=== PATIENT | male | born 1990 | race Caucasian/White ===

== ENCOUNTER 2019-10-02 12:26 | Inpatient (IN) | payer MEDICARE, OTHER, MEDICAID ==
[~2019-10-02] VITALS: Ht 154.9 cm; Wt 45.6 kg
[2019-10-02] VITALS (31 sets, daily range): BP systolic 128–172; BP diastolic 39–121
[2019-10-02] MEDS ORDERED: DEXTROSE (50%) 50ML SYRG IV ONE ×2 (13:10→13:30)
[2019-10-02 13:31] LABS: Basophils # (auto) 0.1 uL; Eosinophils # (auto) 0 uL; Eosinophils % (auto) 0.1 % (0.0-7.0); Hematocrit 38.9 % (41.0-53.0); Lymphocytes # (auto) 1.9 uL
[2019-10-02 13:35] LABS: Basophils % (auto) 0.5 % (0.0-2.0); Lymphocytes % (auto) 18.3 % (10.0-50.0); Mean Corpuscular Hemoglobin 32.9 pg (28.0-32.0); Mean Corpuscular Hgb Conc. 30.9 g/dL (32.0-36.0); Mean Corpuscular Volume 106.7 fL (80.0-100.0); Monocytes # (auto) 0.7 uL; Monocytes % (auto) 6.2 % (0.0-12.0); Neutrophils # (auto) 7.9 uL; Neutrophils % (auto) 74.9 % (37.0-80.0); Nucleated Red Blood Cells % 0.5 %; Platelet Count (auto) 245 10^3/uL (140-450); Red Blood Cells 3.64 10^6/uL (4.5-5.90); White Blood Cell 10.6 10^3/uL (4.4-10.8)
[2019-10-02 13:40] LABS: Red Cell Distribution Width 22.8 % (11.8-14.3)
[2019-10-02 13:50] LABS: Albumin 3.5 g/dL (3.4-5.0); Calcium 8.2 mg/dL (8.5-10.1); Magnesium 2.8 mg/dL (1.6-2.6)
[2019-10-02 13:52] LABS: Lactic Acid w/Reflex 10.6 mmol/L (0.4-2.0)
[2019-10-02 13:56] LABS: Bilirubin, Total 1.1 mg/dL (0.2-1.0); Total Protein 8.9 g/dL (6.4-8.2)
[2019-10-02 14:04] LABS: Potassium 7.5 mmol/L (3.5-5.1)
[2019-10-02] MEDS ORDERED: SODIUM BICARBONATE 8.4% INJ 50ML SYRINGE ONE (14:12)
[2019-10-02] MEDS ORDERED: CALCIUM GLUC 4.65meq/50ml D5AE 50 ML IV ONE ×2 (14:14→14:15)
[2019-10-02] MEDS ORDERED: SUCCINYLCHOLINE CHLORIDE 20 MG/ML 10ML VIAL IV ONE ×2 (14:15)
[2019-10-02] MEDS ORDERED: ETOMIDATE (2MG/ML) 20ML VIAL IV ONE ×2 (14:15)
[2019-10-02] MEDS ORDERED: SODIUM BICARBONATE 8.4 % INJ 50ML VIAL IV ONE ×2 (14:15)
[2019-10-02] MEDS ORDERED: MIDAZOLAM DRIP 50 mg/50mL 50 ML IV ONE (14:17)
[2019-10-02] MEDS ORDERED: ALBUTEROL SULF 2.5 MG/0.5ML(0.5%) NEB SOLN HHN ONE (14:30)
[2019-10-02] MEDS: MIDAZOLAM DRIP 50 mg/50mL 50 ML IV SCH (14:33)
[2019-10-02] MEDS ORDERED: fentaNYL Drip 2500mCg/250mlNS 250 ML IV SCH (15:00)
[2019-10-02] MEDS ORDERED: NITROGLYCERIN 0.4 MG SL TAB SL PRN (15:00)
[2019-10-02] MEDS ORDERED: DEXTROSE (50%) 50ML SYRG IV PRN ×2 (15:00→15:15)
[2019-10-02] MEDS ORDERED: MORPHINE SULF INJ 2 MG/ML SYRINGE 1ML IV PRN (15:00)
[2019-10-02] MEDS ORDERED: Glucerna 1.2 Cal 1Liter BOTTLE GT SCH (15:00)
[2019-10-02] MEDS ORDERED: SODIUM CHL 0.9% 1000 ML BAG XX ONE (15:15)
[2019-10-02] MEDS ORDERED: VANCOMYCIN PER PHARMACY 0 MG IV SCH (15:30)
[2019-10-02] MEDS ORDERED: cefTRIAXone 1GM/50ML D5W 50 ML IV ONE (15:30)
[2019-10-02 16:18] LABS: BUN/Creatinine Ratio 12.4; Calcium 7.5 mg/dL (8.5-10.1)
--- NOTE | 2019-10-02 16:20 | NUR ---
Admit to ICU from ER on vent Report received from Jia JONAS. REBEKAH MAYER admitted to ICU via gurney on colorist dyer, intubated and being bagged by Respiratory Therapist. Patient transferred to bed, connected to mechanical ventilator by therapist, SABRINA at bedside. ER nurse stated they are unable to take patient to head CT at this time. Patient connected to ICU monitoring, weighed by bedscale, oriented to Luna david RN, unit, ventilator and sedation. Vital signs stable at this time. Bed locked in lowest position, alarms in place. Will continue to monitor.
--- NOTE | 2019-10-02 16:20 | NUR ---
Respiratory note: PATIENT TRANSFERRED TO ICU BED 1 WITH SUMI BULLOCK. HE WAS TAKEN OFF VENT AND BAGGED VIA AMBU-BAG WITH 100% FIO2 FOR DURATION OF THE TRIP. HE WAS PLACED BACK ON V14 ESPRIT VENT WITH ALL PREVIOUSLY ORDERED SETTINGS ONCE IN ICU. TRANSPORT COMPLETED WITHOUT INCIDENT.
[2019-10-02 16:21] LABS: CRP High Sensitivity 6.66 mg/dL (< 0.3)
--- NOTE | 2019-10-02 16:25 | NUR ---
CRITICAL LAB VALUES Potassium 7.4, BUN 87. MD to be notified. Patient going to received emergent dialysis per .
[2019-10-02 16:26] LABS: Potassium 7.4 mmol/L (3.5-5.1)
--- NOTE | 2019-10-02 16:35 | NUR ---
JUSTUS CATH Site cultured and sent to lab. Patient arrived from ED without dressing on right groin Justus catheter, site cleansed and dressing applied.
--- NOTE | 2019-10-02 16:39 | NUR ---
DIALYSIS plastic block boiler reliner at bedside, treatment started.
[2019-10-02 16:45] LABS: Basophils # (auto) 0 uL; Eosinophils # (auto) 0 uL; Hematocrit 35.4 % (41.0-53.0); Hemoglobin 11.2 g/dL (13.5-17.5); Mean Corpuscular Hemoglobin 32.8 pg (28.0-32.0); Monocytes # (auto) 0.8 uL; Neutrophils # (auto) 5.9 uL; Platelet Count (auto) 181 10^3/uL (140-450)
[2019-10-02] MEDS ORDERED: CARVEDILOL 3.125 MG TAB NG ONE (16:45)
[2019-10-02 16:47] LABS: Basophils % (auto) 0.3 % (0.0-2.0); Lymphocytes # (auto) 1.6 uL; Lymphocytes % (auto) 19.6 % (10.0-50.0); Mean Corpuscular Hgb Conc. 31.6 g/dL (32.0-36.0); Mean Corpuscular Volume 103.8 fL (80.0-100.0); Monocytes % (auto) 9.4 % (0.0-12.0); Neutrophils % (auto) 70.7 % (37.0-80.0); Nucleated Red Blood Cells % 0.2 %; Red Blood Cells 3.41 10^6/uL (4.5-5.90); Red Cell Distribution Width 22.1 % (11.8-14.3); White Blood Cell 8.3 10^3/uL (4.4-10.8)
[2019-10-02] MEDS ORDERED: ACCU-CHEK COMFORT CURVE STRIP VI SCH (17:00)
[2019-10-02] MEDS ORDERED: VANCOMYCIN 750mg/250ml 250 ML IV ONE (17:00)
[2019-10-02] MEDS ORDERED: InsuLIN REG 1unit/0.01ml Soln (100units/ml) SC SCH (17:00)
[2019-10-02] MEDS: ACCU-CHEK COMFORT CURVE STRIP VI SCH ×2 (17:00→21:56)
[2019-10-02] MEDS: InsuLIN REG 1unit/0.01ml Soln (100units/ml) SC SCH ×2 (17:00→21:56)
--- NOTE | 2019-10-02 17:02 | NUR ---
MD VISIT: NEPHROLOGY at bedside. MD notified of most recent lab results. MD aware. New orders obtained.
[2019-10-02] MEDS ORDERED: PROPOFOL 100 ML IV SCH (17:10)
--- NOTE | 2019-10-02 17:10 | NUR ---
MD VISIT: PULMONOLOGY at bedside. MD aware of labs, ventilator settings, and history. MD reviewing medical records. New orders obtained.
--- NOTE | 2019-10-02 17:30 | NUR ---
FAMILY Patient mother and other family members at bedside.
--- NOTE | 2019-10-02 18:37 | NUR ---
MED HELD One time dose Coreg held per . MD wants to wait until after dialysis to assess stability.
[2019-10-02 19:12] LABS: INR 2.13 (0.9-1.15); Partial Thromboplastin Time 34.5 sec (23.64-32.05)
--- NOTE | 2019-10-02 19:20 | NUR ---
REPORT Report given to Miguel Angel JONAS, care endorsed.
[2019-10-02] MEDS: LABETALOL HCL 5 MG/ML 4ML SYRINGE IV PRN (20:03)
--- NOTE | 2019-10-02 21:30 | NUR ---
PATIENT IS BACK FROM CT WITHOUT ANY INCIDENT.
--- NOTE | 2019-10-02 21:45 | NUR ---
Nasogastric tube insertion Patient educated on need for NG tube. Family's questions addressed. RT. NGT inserted per MD order for tube feeding. Placement verified by aspiration of stomach contents, and auscultation.
[2019-10-02] MEDS: FAMOTIDINE (10MG/ML) 2ML VL IV SCH (21:58)
[2019-10-02] MEDS: CARVEDILOL 3.125 MG TAB NG SCH (21:59)
[2019-10-03] VITALS (81 sets, daily range): BP systolic 115–181; BP diastolic 69–127
--- NOTE | 2019-10-03 03:00 | NUR ---
Patient bathe/linen change Patient given complete bath with chlorhexidine wipes. Skin integrity assessed for any changes. Linens changed. Patient repositioned for comfort.
--- NOTE | 2019-10-03 03:38 | NUR ---
CT HEAD PATIENT IS TAKEN TO CT BY LUCERO JONAS, YEVGENIY AMBROSIO AND TRANSPORT PERSON.PATIENT IS CONNECTED TO PLASTICS DESIGN ENGINEER AND VENTILATOR. TRANSPORT BOX AND AMBUBAG KEPT ON PT'S BED. Addendum: 10/03/19 at 0343 by Bebo Swift RN ERROR ON CHARTING ACTUAL TIME 2406
[2019-10-03 03:58] LABS: Basophils # (auto) 0 uL; Basophils % (auto) 0.6 % (0.0-2.0); Eosinophils # (auto) 0 uL; Eosinophils % (auto) 0.6 % (0.0-7.0); Hematocrit 30.5 % (41.0-53.0); Hemoglobin 9.9 g/dL (13.5-17.5); Lymphocytes # (auto) 2.6 uL; Lymphocytes % (auto) 34.7 % (10.0-50.0); Mean Corpuscular Hgb Conc. 32.5 g/dL (32.0-36.0); Mean Corpuscular Volume 101.5 fL (80.0-100.0); Monocytes # (auto) 0.7 uL; Monocytes % (auto) 8.6 % (0.0-12.0); Neutrophils # (auto) 4.2 uL; Neutrophils % (auto) 55.5 % (37.0-80.0); Nucleated Red Blood Cells % 0.1 %; Platelet Count (auto) 172 10^3/uL (140-450); White Blood Cell 7.6 10^3/uL (4.4-10.8)
[2019-10-03 03:59] LABS: Red Cell Distribution Width 21.9 % (11.8-14.3)
[2019-10-03 04:01] LABS: Calcium 7.8 mg/dL (8.5-10.1); Potassium 5.5 mmol/L (3.5-5.1)
[2019-10-03] MEDS: LABETALOL HCL 5 MG/ML 4ML SYRINGE IV PRN (06:19)
[2019-10-03] MEDS: ACCU-CHEK COMFORT CURVE STRIP VI SCH ×4 (06:23→21:40)
[2019-10-03] MEDS: InsuLIN REG 1unit/0.01ml Soln (100units/ml) SC SCH ×4 (06:23→21:40)
--- NOTE | 2019-10-03 07:35 | NUR ---
OPENING Report received from Miguel Angel RN, care assumed. Physical assessment complete Patient is intubated on ventilator, tolerating well at this time. Oxygen saturation 100%. No s/s of pain or distress noted.Pupils are equal and reactive. Cough and gag present. Pulses palpable radial and pedal bilaterally. SCD's on bilateral lower extremities. Abdomen is flat and soft. OGT with tube feedings running at this time. Patient anuric on dialysis. Right groin Missael catheter. See skin/wound assessment. Bed locked in lowest position, vitals stable, and alarms in place. Will continue to monitor.
[2019-10-03] MEDS ORDERED: ALBUTEROL SULF 2.5 MG/0.5ML(0.5%) NEB SOLN NEB ONE (08:00)
[2019-10-03] MEDS ORDERED: SODIUM BICARBONATE 8.4 % INJ 50ML VIAL IV ONE (08:00)
--- NOTE | 2019-10-03 08:20 | NUR ---
MD VISIT: NEPHROLOGY at bedside. MD aware of labs, and vitals. New orders received.
--- NOTE | 2019-10-03 08:41 | NUR ---
PICC PICC line nurse at bedside. RN stated they were unable to advance central line due to scar tissue yesterday in ER. notified. MD obrien with midline being placed above left upper arm old AV fistula.
[2019-10-03] MEDS: SODIUM BICARBONATE 50ML VIAL 50 ML in D5W/SOD CHL 0.45% 1,000 ML IV SCH (09:47)
[2019-10-03] MEDS ORDERED: cefTRIAXone 1GM/50ML D5W 50 ML IV SCH (10:00)
--- NOTE | 2019-10-03 10:00 | NUR ---
TF Tube feeding residual checked, 10 cc noted. Continue feedings at same rate.
[2019-10-03] MEDS: CARVEDILOL 3.125 MG TAB NG SCH ×2 (10:05→21:34)
[2019-10-03] MEDS: SODIUM ZIRCONIUM CYCL 10 GM PAK PO SCH (10:05)
[2019-10-03] MEDS: FAMOTIDINE (10MG/ML) 2ML VL IV SCH (10:06)
--- NOTE | 2019-10-03 10:20 | NUR ---
RADIOLOGY Spoke with , notified him that patient catheter is 32 cm. MD going to see if they carry similar catheter here. MD will call later.
--- NOTE | 2019-10-03 10:30 | NUR ---
WARMING MEASURES Patient rectal temperature 97.3, multiple blankets placed on patient, room temperature increased, and warming light on. Will continue to monitor.
--- NOTE | 2019-10-03 10:30 | NUR ---
PICC NURSE AT BEDSIDE.
--- NOTE | 2019-10-03 10:37 | NUR ---
FAMILY Spoke with Madelyn (mother) over the phone. Updated on plan of care. Mother would like to wait to sign consent for tunnel catheter exchange at this time.
--- NOTE | 2019-10-03 11:00 | NUR ---
PICC Line Consult/Midline Placement: Pt was evaluated for PICC line consultation. Pt is not a PICC line candidate. SINCERE ALEXANDRA had attempted central line placement to bilateral subclavian veins multiple times yesterday and was unsuccessful with advancing catheter centrally. A midline was inserted to RUE yesterday and remains in tact. Dr Osborn is aware of need for additional IV access, and states okay to insert another midline to LUE distal of old, non-functioning dialysis access. 18g/10cm midline inserted via left basilic vein using Ultrasound. Sterile technique utilized. Blood return obtained from lumen and flushed easily with NS using proper technique. Midline secured with saline lock; biodisc and occlusive dressing applied. Luna JONAS notified. Midline lot #[id number]
--- NOTE | 2019-10-03 11:46 | NUR ---
MD VISIT: PCP Rl at bedside assessing patient. MD reviewing medical chart. New orders received. MD signed transfer paperwork in case [facility] calls for transfer.
[2019-10-03] MEDS ORDERED: PIPERACILLIN-TAZOB 0.75 GM in D5W 5% 50 ML IV SCH (12:00)
--- NOTE | 2019-10-03 12:00 | NUR ---
MD VISIT: PULMONOLOGY at bedside. MD would like to attempt cpap trial today if patient is able to follow commands. Orders placed and RT notified.
[2019-10-03] MEDS: PIPERACILLIN-TAZOB 2.25GM 50 ML IV SCH ×2 (12:04→21:35)
--- NOTE | 2019-10-03 12:12 | NUR ---
SEDATION Sedation titrated off for cpap trial.
--- NOTE | 2019-10-03 13:00 | NUR ---
NEURO STATUS Patient opening eyes and following commands at this time. RT paged to bedside for Cpap trial.
--- NOTE | 2019-10-03 13:03 | NUR ---
CPAP Patient placed on cpap trial. Vitals stable, no distress noted. Will continue to monitor.
--- NOTE | 2019-10-03 13:22 | NUR ---
ELIMINATION Patient had small formed bowel movement. Niesha care performed. Patient able to assist with some turning but still very weak. Partial linen change complete. Patient repositioned on side, head of bed greater than 30 degrees. Patient tolerating Cpap trial. No distress noted at this time.
--- NOTE | 2019-10-03 13:26 | NUR ---
PAGED paged regarding patient c/o pain. Patient mother states she gives him Dilaudid and methadone at home. stated just to place patient back on whatever pain medication he is currently taking.
--- NOTE | 2019-10-03 13:48 | NUR ---
MD UPDATE updated on delay of tunnel catheter exchange due to radiology not having that size catheter. If we can obtain correct catheter size, procedure may be performed tuesday. aware.
[2019-10-03] MEDS: MIDAZOLAM DRIP 50 mg/50mL 50 ML IV SCH (14:18)
--- NOTE | 2019-10-03 14:30 | NUR ---
WOUND CARE NOTE: Wound care consult received from nursing for intubation and low Gerardo score. Patient is a 29 yo male admitted for acute respiratory failure. Patient with a history of diabetes, hypertension, hip replacement, and ESRD with hemodialysis. Patient is currently intubated and on a CPAP trial. No signs or symptoms of pain. Discussed with bedside RN, Luna. Last Gerardo score is 13. Reviewed photos taken by nursing of intact ecchymosis to bilateral lower extremities. Unable to turn to assess skin at this time due to CPAP and pending extubation. Per bedside RN, skin is intact. RECOMMENDATIONS: Dietary consult; turn q2hrs; Nursing to cleanse buttocks with mild soap and water, pat dry, apply ZGUARD BID/PRN, may apply sacral OPTIFOAM GENTLE dressing to prevent friction/shear injuries, change PRN soiling; wound care team to continue to follow while intubated and Gerardo <18.
--- NOTE | 2019-10-03 14:55 | NUR ---
EXTUBATE Patient extubated by RT Extubation order received by , RT at bedside. Patient extubated with no problems, patient tolerated well. Patient placed on cool mist mask. Sats prior to extubation 98%, following extubation 100%. No stridor or shortness of breath noted. Respirations are even and unlabored. Continue to monitor.
[2019-10-03] MEDS ORDERED: MIN25T PO (15:38)
[2019-10-03] MEDS ORDERED: HYDR8TAB PO (15:38)
[2019-10-03] MEDS ORDERED: ONDA-180 PO (15:38)
[2019-10-03] MEDS ORDERED: CLON0.3D4 PO (15:38)
[2019-10-03] MEDS ORDERED: SEVE800T8 PO (15:38)
[2019-10-03] MEDS ORDERED: METH10T PO (15:38)
[2019-10-03] MEDS ORDERED: AMLO5TAB15 PO (15:38)
[2019-10-03] MEDS ORDERED: CARV25TA55 PO (15:38)
[2019-10-03] MEDS ORDERED: LACT10PA2 PO (15:38)
[2019-10-03] MEDS ORDERED: LORA1TAB12 PO (15:38)
[2019-10-03] MEDS ORDERED: HYDROmorphone HCL 2 MG TAB PO PRN (15:45)
--- NOTE | 2019-10-03 15:49 | NUR ---
MED REQ Obtained a list of medications from patients mother. notified of patient taking hydromorphone 8mg Q8hr for pain as needed at home as well as methadone 10 mg every 8 hours. MD ordered to continue both medications. Orders placed.
--- NOTE | 2019-10-03 16:38 | NUR ---
OXYGENATION Patient placed on 2L nasal cannula, no signs of distress or shortness of breath. Oxygen saturation 100%.
--- NOTE | 2019-10-03 16:39 | NUR ---
4777 10/03/19 I spoke with [facility] Launch Operator Lucy to let her know that patient is stable for transfer to [place] per Dr. Khalil and that patient was extubated at 1500. Faxed transfer order, transfer summary and Notice Regarding Post Stabilization to [place]-document scanned into [employer].
--- NOTE | 2019-10-03 18:24 | NUR ---
RN SWALLOW EVAL Patient able to swallow ice, apple juice, and jello without difficulty.
--- NOTE | 2019-10-03 18:58 | NUR ---
ACTIVITY Patient ambulated to bedside commode with minimal assistance from RN. Patient tolerated activity well. Patient then returned to bed, now eating dinner. Patient c/o pain 9/10 in bilateral lower extremities. Patient states its a "chronic pain". Patient has been taking 8 mg of Dilaudid for over one year. Patient given PRN pain medication.
--- NOTE | 2019-10-03 19:29 | NUR ---
REPORT Report given to Edel JONAS, care endorsed. Addendum: 10/03/19 at 1929 by Luna Vee RN REPORT GIVEN TO YONY JONAS
--- NOTE | 2019-10-03 20:00 | NUR ---
ASSESSMENT PATIENT IS AAOX4. VITAL SIGNS ARE STABLE. PATIENT ATE 90% OF THE DINNER, NO SWALLOWING ISSUES, TOLERATED WELL. USING BEDSIDE COMMODE FOR BOWEL MOVEMENTS. PATIENT IS TELE STATUS PER 'S COMMUNICATION ORDER. WILL CONTINUE MONITOR.
[2019-10-03] MEDS: METHADONE HCL 10 MG TAB PO SCH (21:34)
[2019-10-04] VITALS (22 sets, daily range): BP systolic 114–150; BP diastolic 76–110
[2019-10-04 05:40] LABS: Basophils # (auto) 0 uL; Basophils % (auto) 0.6 % (0.0-2.0); Eosinophils # (auto) 0.1 uL; Eosinophils % (auto) 2.1 % (0.0-7.0); Hemoglobin 9.5 g/dL (13.5-17.5); Lymphocytes # (auto) 0.9 uL; Lymphocytes % (auto) 19.3 % (10.0-50.0); Mean Corpuscular Hemoglobin 33.2 pg (28.0-32.0); Mean Corpuscular Hgb Conc. 32.7 g/dL (32.0-36.0); Mean Corpuscular Volume 101.6 fL (80.0-100.0); Monocytes # (auto) 0.4 uL; Monocytes % (auto) 8.2 % (0.0-12.0); Neutrophils # (auto) 3.3 uL; Neutrophils % (auto) 69.8 % (37.0-80.0); Nucleated Red Blood Cells % 0.1 %; Platelet Count (auto) 131 10^3/uL (140-450); Red Blood Cells 2.86 10^6/uL (4.5-5.90); White Blood Cell 4.7 10^3/uL (4.4-10.8)
[2019-10-04 05:42] LABS: Red Cell Distribution Width 22.3 % (11.8-14.3)
[2019-10-04] MEDS: METHADONE HCL 10 MG TAB PO SCH ×2 (06:00→14:00)
[2019-10-04] MEDS ORDERED: diphenhdrAMINE HCL 25 MG CAP PO ONE ×2 (06:28→06:30)
--- NOTE | 2019-10-04 06:30 | NUR ---
PATIENT REFUSED MEDS PATIENT REFUSED METHADONE BECAUSE HE DOESN'T HAVE PAIN NOW. PATIENT REFUSED BENADRYL 25 MG PO FOR ITCHING AND HE SAID THAT HE WANTS BENADRYL 50 MG IV. THIS RN TOLD THE PATIENT THAT THE HOSPITALIST DIDN'T ORDER BENADRYL 25MG IV WHEN ASKED HIM. THEN PATIENT SAID HE WILL WAIT FOR THE DOCTOR TO ORDER BENADRYL 50 MG IV.
[2019-10-04] MEDS: SODIUM BICARBONATE 50ML VIAL 50 ML in D5W/SOD CHL 0.45% 1,000 ML IV SCH (06:35)
[2019-10-04 06:49] LABS: Potassium 4.7 mmol/L (3.5-5.1)
[2019-10-04] MEDS: ACCU-CHEK COMFORT CURVE STRIP VI SCH ×3 (06:53→17:10)
[2019-10-04] MEDS: InsuLIN REG 1unit/0.01ml Soln (100units/ml) SC SCH ×3 (06:54→17:00)
[2019-10-04 07:06] LABS: BUN/Creatinine Ratio 12.6; Calcium 7.4 mg/dL (8.5-10.1)
--- NOTE | 2019-10-04 09:55 | NUR ---
PHONE CALL Called and spoke to Madelyn, patients mother, per patient request. Provided correct password and message given to mother from patient. Madelyn states " Will be here around noon."
[2019-10-04] MEDS: SODIUM ZIRCONIUM CYCL 10 GM PAK PO SCH (10:00)
--- NOTE | 2019-10-04 10:00 | NUR ---
MEDICATION REFUSED Patient refused Lokema.
[2019-10-04] MEDS: FAMOTIDINE (10MG/ML) 2ML VL IV SCH (10:02)
[2019-10-04] MEDS: CARVEDILOL 3.125 MG TAB NG SCH (10:04)
[2019-10-04] MEDS: PIPERACILLIN-TAZOB 2.25GM 50 ML IV SCH (10:04)
--- NOTE | 2019-10-04 11:30 | NUR ---
BLOOD GLUCOSE Blood glucose 114 no insulin given.
--- NOTE | 2019-10-04 11:40 | NUR ---
MD Dr. Khalil at bedside updated on patient condition with new orders, MD to input into system. MD spoke to patient regarding plan of care and questions/concerns answered by MD.
--- NOTE | 2019-10-04 12:35 | NUR ---
[facility] Received phone call from [facility] transplant case manager regarding current vital signs and neuro status. States " Will call when bed is available and transfer has been set up."
--- NOTE | 2019-10-04 12:41 | NUR ---
1230 10/04/19 Contacted Block Mason Blanca at [facility] and requested that authorization be provided for continued stay. Per Blanca, stay was denied yesterday due to lack of clinical information. I let her know that I faxed clinical information yesterday including MD progress notes along with the transfer order. Blanca was not able to tell me why patient was not transferred to [facility] yesterday. She said she will speak with her physician regarding the authorization for yesterday. Per Blanca she did receive today's transfer order along with clinical information-she will work on transfer and will call nurse's station when a bed becomes available. I requested that Block Mason Blanca call me back regarding the requested authorization for yesterday.
[2019-10-04] MEDS ORDERED: SODIUM CHL 0.9% 1000 ML BAG XX ONE (12:45)
[2019-10-04 12:51] LABS: Hepatitis A Ab IgM Negative; Hepatitis B Core IgM Negative; Hepatitis B Surface Antigen Negative (Negative); Hepatitis C Antibody Negative (Negative)
--- NOTE | 2019-10-04 13:30 | NUR ---
Nutrition Assessment Notes Please refer to link for full assessment notes Est energy needs: [id number] kcals ( 35-40 kcal/kgBW) d/t pt CKD Est protein needs: 50-55 gms?day (1.1-1.2 gm/kg BW) d/t pt Hemodialysis Will continue to monitor and reassess prn Addendum: 10/04/19 at [address] Amended: Links added.
[2019-10-04] MEDS ORDERED: diphenhdrAMINE HCL 50 MG/1 ML VL IV ONE (14:15)
[2019-10-04] MEDS ORDERED: diphenhdrAMINE HCL 50 MG/1 ML VL ONE (14:19)
--- NOTE | 2019-10-04 14:20 | NUR ---
DIALYSIS Dialysis nurses Em at bedside and preparing patient and equipment for hemodialysis.
--- NOTE | 2019-10-04 14:25 | NUR ---
DIALYSIS Hemodialysis started.
--- NOTE | 2019-10-04 14:55 | NUR ---
[facility] Received phone call from Blanca JONASmanager technical services regarding results of blood cultures. Informed her that patient is receiving hemodialysis at this time.
[2019-10-04] MEDS ORDERED: VANCOMYCIN 500 MG in D5W 5% 100 ML IV ONE (17:00)
--- NOTE | 2019-10-04 17:25 | NUR ---
DIALYSIS Hemodialysis has finished and 1.9liters out.
--- NOTE | 2019-10-04 18:55 | NUR ---
[facility] Received phone call from Sheri regarding bed assignment and pick up man time. Patient transferring to [facility] in [place] room 431.
--- NOTE | 2019-10-04 19:19 | NUR ---
[facility] Called [place] to give report. Asked if we can call in 10-15 minutes patient has not been assigned to a nurse yet.
--- NOTE | 2019-10-04 19:25 | NUR ---
SPOKE TO PATIENT'S MOTHER, CARLOS: MADE AWARE OF TRANSFER TO [facility] ROOM 431
[2019-10-04] MEDS: EPOETIN ALFA 10,000 UNIT/1 ML VIAL SC ONE ×2 (19:36→19:42)
--- NOTE | 2019-10-04 19:42 | NUR ---
PATIENT REFUSED EPOGEN
--- NOTE | 2019-10-04 19:54 | NUR ---
ATTEMPTED TO CALL [facility], PERSON WHO ANSWERED THE PHONE ASKED PILE DRIVER ENGINEER TO CALL BACK IN 5 MINUTES
--- NOTE | 2019-10-04 20:15 | NUR ---
TRANSFER NOTE: SLEEPY BUT AROUSABLE. WITHDRAWN WITH FLAT AFFECT. REPORTS 8-10/10 GENERALIZED PAIN. NO PAIN BEHAVIORS IDENTIFIED. FALLS ASLEEP INTERMITTENTLY. NSR WITH BBB, HR 90s, +MURMUR. SBP 120-130s. LS CTA, DIMINISHED TO BASES. EVEN AND UNLABORED BREATHING. SpO2 >95% ON 2 L O2 VIA NC. ABD SOFT. NORMOACTIVE BS. +FLATUS. LBM 10/04. ANURIC. SKIN GROSSLY INTACT, SEE SKIN AND WOUND FLOWSHEET FOR ASSESSMENT. RIGHT AND LEFT UPPER ARM MIDLINES, CDI, PATENT WITH BLOOD RETURN. BILATERAL 22 G FOREARM PIVS, CDI, PATENT WITH BLOOD RETURN. RIGHT GROIN JUSTUS, CDI, BUT NO SUTURES PRESENT. +BILATERAL BLE NON PITTING EDEMA. PATIENT AGREEABLE TO TRANSFER AND STABLE AT THIS TIME. WILL ENDORSE CARE TO EMS.
--- NOTE | 2019-10-04 20:21 | NUR ---
CALLED REPORT TO MARILU COOMBS GUIN SUMI
--- NOTE | 2019-10-04 20:21 | NUR ---
EMS AT BEDSIDE
--- NOTE | 2019-10-04 20:26 | NUR ---
LEFT WITH EMS AND ALL BELONGINGS
== END 2019-10-04 20:10 | disposition short-term general hospital (02) | DRG 280 ==
LOC: EDBD 12:26 → ER 12:30 → ICU WEST 12:31
PROVIDERS: ADMIT Nurse Practitioner Acute Care; ATTEND Internal Medicine Nephrology
PROC: 5A1945Z Respiratory Ventilation, 24-96 Consecutive Hours (ICD-10-PCS; principal; 2019-10-02)
PROC: 0BH17EZ Insertion of Endotracheal Airway into Trachea, Via Natural or Artificial Opening (ICD-10-PCS; 2019-10-02)
PROC: 0D9670Z Drainage of Stomach with Drainage Device, Via Natural or Artificial Opening (ICD-10-PCS; 2019-10-02)
PROC: 5A1D70Z Performance of Urinary Filtration, Intermittent, Less than 6 Hours Per Day (ICD-10-PCS; 2019-10-02)
PROC: 02HV33Z Insertion of Infusion Device into Superior Vena Cava, Percutaneous Approach (ICD-10-PCS; 2019-10-03)
PROC: 5A1D70Z Performance of Urinary Filtration, Intermittent, Less than 6 Hours Per Day (ICD-10-PCS; 2019-10-04)
DX: I13.2 Hypertensive heart and chronic kidney disease with heart failure and with stage 5 chronic kidney disease, or end stage renal disease (principal); N18.6 End stage renal disease; I21.A1 Myocardial infarction type 2; R65.21 Severe sepsis with septic shock; G93.41 Metabolic encephalopathy; J96.01 Acute respiratory failure with hypoxia; J96.02 Acute respiratory failure with hypercapnia; J18.9 Pneumonia, unspecified organism; A41.9 Sepsis, unspecified organism; I50.22 Chronic systolic (congestive) heart failure; N17.9 Acute kidney failure, unspecified; Z99.11 Dependence on respirator [ventilator] status; N05.1 Unspecified nephritic syndrome with focal and segmental glomerular lesions; E87.5 Hyperkalemia; R79.89 Other specified abnormal findings of blood chemistry; N26.9 Renal sclerosis, unspecified; D63.8 Anemia in other chronic diseases classified elsewhere; E11.649 Type 2 diabetes mellitus with hypoglycemia without coma; Z88.6 Allergy status to analgesic agent; Z99.2 Dependence on renal dialysis; Z88.5 Allergy status to narcotic agent; Z88.8 Allergy status to other drugs, medicaments and biological substances; Z83.3 Family history of diabetes mellitus; Z82.49 Family history of ischemic heart disease and other diseases of the circulatory system; Z79.84 Long term (current) use of oral hypoglycemic drugs
CPT/HCPCS: 31500; 36415; 36600; 70450; 71045; 80048; 80053; 80074; 80202; 82550; 82805; 82962; 83605; 83735; 83880; 84484; 85025; 85610; 85652; 85730; 86141; 87040; 87070; 87077; 87081; 87186; 87205; 87804; 90935; 93005; 93306; 94002; 94003; 94640; 96365; 96375; 99291; 99292; G0378; J0330; J0610; J0696; J0885; J1642; J2250; J2543; J2704; J3490; J7060

== ENCOUNTER 2021-09-03 13:37 | Emergency (ER) | payer MEDICARE, OTHER, MEDICAID ==
[~2021-09-03] VITALS: Ht 144.8 cm; Wt 45.4 kg
[~2021-09-03 13:37] MED LIST: AMLO-489 PO; CARV25TA55 PO; CLON0.3D4 PO; HYDR8TAB PO; LACT10PA2 PO; LORA1TAB23 PO; METH10T PO; MIN25T PO; ONDA-180 PO; SEVE800T8 PO
[2021-09-03] MEDS ORDERED: SODIUM CHLORIDE 0.9% 1,000 ML IV ONE (14:00)
[2021-09-03] MEDS ORDERED: HYDROmorphone HCL 2 MG/ML VL IV ONE ×2 (16:15→20:15)
[2021-09-03] MEDS ORDERED: ONDANSETRON HCL 4 MG/2 ML VIAL IV ONE ×2 (16:15→20:15)
[2021-09-03 20:44] LABS: Albumin 3.3 g/dL (3.4-5.0); Calcium 9.1 mg/dL (8.5-10.1); Potassium 3.1 mmol/L (3.5-5.1)
[2021-09-03 20:54] LABS: BUN/Creatinine Ratio 11.8; Bilirubin, Total 0.4 mg/dL (0.2-1.0); Total Protein 7.6 g/dL (6.4-8.2)
[2021-09-03 20:57] VITALS: BP 155/107
== END 2021-09-03 18:19 | disposition home or self-care (01) ==
LOC: EDUNIT# 13:37 → ER 13:37 → EDBD 13:37 → ER 18:19
DX: R56.9 Unspecified convulsions (principal); I12.0 Hypertensive chronic kidney disease with stage 5 chronic kidney disease or end stage renal disease; N18.6 End stage renal disease; E78.5 Hyperlipidemia, unspecified; Z99.2 Dependence on renal dialysis
CPT/HCPCS: 36415; 80053; 84484; 96374; 96375; 96376; 99284; J1170; J2405